=== PATIENT | female | born 1940 | race Two or more races ===

== ENCOUNTER 2017-02-24 11:05 | Emergency (ER) | payer OTHER ==
[2017-02-24 13:41] LABS: BASOPHIL % 0.2 % (0-2); PLATELET COUNT 243 x10^3mcL (130-400)
[2017-02-24 13:47] LABS: RED CELL DISTRIBUTION WIDTH 14.6 % (11.5-14.5)
[2017-02-24 13:50] LABS: CALCIUM 8.1 mg/dL (8.5-10.1); CARBON DIOXIDE 22.9 mmol/L (21-32); CHLORIDE SERUM 103 mmol/L (98-107); CREATININE SERUM 0.5 mg/dL (0.6-1.0); GLUCOSE SERUM 110 mg/dL (74-106); POTASSIUM SERUM 3.5 mmol/L (3.5-5.1); SODIUM SERUM 137 mmol/L (136-145)
[2017-02-24 13:54] LABS: ALBUMIN 3.8 g/dL (3.4-5.0); ALKALINE PHOSPHATASE 68 U/L (46-116); ALT/SGPT 28 U/L (14-59); AMYLASE 45 U/L (25-115); AST/SGOT 28 U/L (15-37); BILIRUBIN TOTAL 1.09 mg/dL (0.20-1.00); LIPASE 115 IU/L (73-393); TOTAL PROTEIN, SERUM 7.2 g/dL (6.4-8.2)
[2017-02-24 16:40] VITALS: BP 121/52
== END 2017-02-24 16:40 | disposition home or self-care (01) ==
LOC: ED 11:05
PROVIDERS: Emergency Medicine
DX: E86.0 Dehydration (principal); R10.9 Unspecified abdominal pain; I10 Essential (primary) hypertension; Z88.0 Allergy status to penicillin
CPT/HCPCS: 83880; 87046; 87046-59; J2405; J7030

== ENCOUNTER 2017-02-25 13:09 | Emergency (ER) | payer OTHER ==
[~2017-02-25] VITALS: Ht 152.4 cm; Wt 58.5 kg
[2017-02-25 13:33] VITALS: BP 125/72; Ht 152.4 cm; Wt 58.5 kg
== END 2017-02-25 17:32 | disposition left against medical advice (07) ==
LOC: ED 13:09
DX: Z53.21 Procedure and treatment not carried out due to patient leaving prior to being seen by health care provider (principal)
CPT/HCPCS: J7030